=== PATIENT | male | born 1980 | race Caucasian/White ===

== ENCOUNTER 2019-06-29 16:00 | Emergency (ER) | payer BC, OTHER ==
[~2019-06-29] VITALS: Ht 180 cm; Wt 118.1 kg
--- NOTE | 2019-06-29 16:29 | ED GU-Male ---
General Chief Complaint: Male Reproductive Stated Complaint: TESTICULAR PAIN Nursing Triage Note: Patient reports sudden onset of left testicular pain and swelling 2 hours ago. States he has taken 400 mg of motrin at home without relief. Hx of vasectomy 4-5 years ago. History of Present Illness Date Seen by Provider: Jun 29, 2019 Time Seen by Provider: 16:00 Timing/Duration: this afternoon Severity/Quality: moderate Location: scrotal Radiation: none Activities at Onset: none Prior Genitourinary Problems: none Modifying Factors: Worsens With Coughing, Worsens With Urinating Associated Symptoms: No abdominal pain, No fever/chills, No nausea/vomiting, No syncope Allergies and Home Medications Allergies Coded Allergies: No Known Drug Allergies (Unverified , 06/29/19) Patient Home Medication List Home Medication List Reviewed: Yes Review of Systems Review of Systems Constitutional: No chills, No fever EENTM: No hoarseness, No throat pain Respiratory: No cough, No dyspnea on exertion Cardiovascular: No chest pain, No palpitations Gastrointestinal: No abdominal pain, No constipation, No diarrhea, No nausea, No vomiting Genitourinary: denies burning, denies dysuria, denies frequency; pain Skin: No lesions, No rash Psychiatric/Neurological: Denies Headache, Denies Weakness Past Vhtldsp-Fjpifc-Lttino Hx Past Med/Social Hx: Reviewed Nursing Past Med/Soc Hx Patient Social History Recent Foreign Travel: No Contact w/Someone Who Travel: No Recent Infectious Disease Expo: No Physical Exam Vital Signs Vital Signs - First Documented 06/29/19 16:07 Temp 36.4 Pulse 71 Resp 16 B/P (MAP) 165/94 (117) Pulse Ox 95 O2 Delivery Room Air Capillary Refill : Less Than 3 Seconds Height, Weight, BMI Height: '" Weight: lbs. oz. kg; 36.00 BMI Method: General Appearance: WD/WN, no apparent distress Cardiovascular: regular rate, rhythm, no murmur Respiratory: lungs clear, normal breath sounds Male: other (left testicle normally descended soft nontender epididymis a hind firm but no sign of fluctuant or absolutely cystlike area tender to palpation no tenderness in the groin no signs of testicular torsion) Progress/Results/Core Measures Suspected Sepsis Recent Fever Within 48 Hours: No Infection Criteria Present: None New/Unexplained Altered Menta: No Sepsis Screen: No Definite Risk SIRS Temperature: Pulse: 71 Respiratory Rate: 16 Blood Pressure 165 /94 Mean: 117 Results/Orders Lab Results Laboratory Tests Test 06/29/19 16:50 Range/Units Urine Color YELLOW Urine Clarity CLEAR Urine pH 6.0 5-9 Urine Specific [place] >=1.030 1.016-1.022 Urine Protein NEGATIVE NEGATIVE Urine Glucose (UA) NEGATIVE NEGATIVE Urine Ketones NEGATIVE NEGATIVE Urine Nitrite NEGATIVE NEGATIVE Urine Bilirubin NEGATIVE NEGATIVE Urine Urobilinogen 0.2 < = 1.0 MG/DL Urine Leukocyte Esterase NEGATIVE NEGATIVE Urine RBC (Auto) NEGATIVE NEGATIVE Urine RBC NONE /HPF Urine WBC RARE /HPF Urine Squamous Epithelial Cells RARE /HPF Urine Crystals NONE /LPF Urine Bacteria NEGATIVE /HPF Urine Casts NONE /LPF Urine Mucus SMALL H /LPF Urine Culture Indicated NO My Orders Orders - MOHSEN WALLS JR, MD Ua Culture If Indicated (06/29/19 16:26) Vital Signs/I&O 06/29/19 16:07 Temp 36.4 Pulse 71 Resp 16 B/P (MAP) 165/94 (117) Pulse Ox 95 O2 Delivery Room Air Capillary Refill : Less Than 3 Seconds Blood Pressure Mean: 117 Departure Impression Primary Impression: Epididymitis Disposition: HOME, SELF-CARE Condition: Stable Departure-Patient Inst. Referrals: CAROLYN EAST MD (PCP/Family) Primary Care Physician Patient Instructions: Epididymitis (DC) Scripts Ciprofloxacin HCl (Ciprofloxacin HCl) 500 Mg Tablet 500 MG PO BID, #28 TAB Prov: MOHSEN WALLS JR, MD 06/29/19 MOHSEN WALLS JR, MD Jun 29, 2019 16:29
[2019-06-29 17:18] LABS: BACTERIA,URINE NEGATIVE /HPF; BILIRUBIN,URINE NEGATIVE (NEGATIVE); CLARITY,URINE CLEAR; COLOR,URINE YELLOW; GLUCOSE, URINE (UA) NEGATIVE (NEGATIVE); KETONES,URINE NEGATIVE (NEGATIVE); LEUKOCYTE ESTERASE ,URINE NEGATIVE (NEGATIVE); NITRITE,URINE NEGATIVE (NEGATIVE); PROTEIN,URINE NEGATIVE (NEGATIVE); SQUAMOUS EPITHELIAL CELL,UR RARE /HPF; WBC,URINE RARE /HPF
[2019-06-29] MEDS ORDERED: CIPR500T4 PO (17:22)
[2019-06-29] MEDS ORDERED: LIDOCAINE 1% INJ 20 ML 20 ML VIAL INJ ONE (17:30)
[2019-06-29] MEDS ORDERED: cefTRIAXone 1,000 MG/2.86 ml vial (IM ONLY) IM SCH (17:30)
[2019-06-29 17:48] VITALS: BP 139/97
== END 2019-06-29 17:48 | disposition home or self-care (01) ==
LOC: EDUNIT# 16:00 → ER FS 16:02
DX: N45.1 Epididymitis (principal)
CPT/HCPCS: 81000; 96372; 99284